=== PATIENT | male | born 1965 | race Caucasian/White ===

== ENCOUNTER 2018-10-06 18:39 | Emergency (ER) | payer MEDICAID, OTHER ==
[~2018-10-06] VITALS: Ht 175.3 cm; Wt 113.4 kg
[~2018-10-06 18:39] MED LIST: ACET-787 PO; DIAZ10TA PO; DULO30EC PO
[2018-10-06 18:42] VITALS: BP 160/100
--- NOTE | 2018-10-06 19:16 | NUR ---
53/M PRESENTS TO ED, C/O NONPRODUCTIVE COUGH X1.5 WEEKS. PT STATED THAT HE WAS DX WITH FLU LAST WEEK. PT REPORTS BODY ACHES. PT AOX4, GCS 15, RR EVEN AND UNLABORED. LUNG SOUNDS CLEAR BL.
--- NOTE | 2018-10-06 19:41 | NUR ---
Dr. Colbert evaluating patient at bedside.
[2018-10-06] MEDS ORDERED: ALBUTEROL SULFATE/IPRATROPIU 3 ML SOL IH ONE ×2 (20:00→20:25)
--- NOTE | 2018-10-06 20:07 | NUR ---
X-Ray at bedside.
--- NOTE | 2018-10-06 20:09 | NUR ---
Respiratory Therapist at bedside for respiratory intervention.
--- NOTE | 2018-10-06 20:29 | NUR ---
RT AT BEDSIDE FOR BREATHING TX
[2018-10-06 20:39] VITALS: BP 135/57
--- NOTE | 2018-10-06 20:39 | NUR ---
Patient discharged with v/s stable. Written and verbal after care instructions given and explained. Patient alert, oriented and verbalized understanding of instructions. Ambulatory with steady gait. All questions addressed prior to discharge. ID band removed. Patient advised to follow up with PMD. Rx of ALBUTEROL INHALER given. Patient educated on indication of medication including possible reaction and side effects. Opportunity to ask questions provided and answered.
--- NOTE | 2018-10-06 20:40 | NUR ---
PT STATES THAT HE HAS A SENIOR CARE, PT WITH SEASON APPROPRIATE CLOTHING, FOOD OFFERED BUT REFUSED. PCP REFERRAL SHEET GIVEN.
== END 2018-10-06 20:39 | disposition home or self-care (01) ==
LOC: MED 18:39
DX: J44.1 Chronic obstructive pulmonary disease with (acute) exacerbation (principal); Z79.899 Other long term (current) drug therapy
CPT/HCPCS: 71045; 94640; 94760; 99284; J7620; Q0092